=== PATIENT | female | born 1995 | race American Indian/Alaskan Native ===

== ENCOUNTER 2018-01-20 00:27 | Inpatient (IN) | payer OTHER ==
[2018-01-20] MEDS ORDERED: S2 RACEPINEPHRINE 2.25% IH ONE (00:29)
[2018-01-20] MEDS ORDERED: ADRENALIN IV ONE ×2 (00:30)
[2018-01-20] MEDS ORDERED: NACL 0.9% 1000 ML 1,000 ML IV ONE (00:30)
[2018-01-20] MEDS ORDERED: PROVENTIL IH ONE (00:55)
[2018-01-20] MEDS ORDERED: ZOFRAN IV ONE (00:55)
[2018-01-20 01:20] LABS: Basophils % (Auto) 0.2 % (0.0-1.8); Eosinophils # (Auto) 0.1 K/mm3 (0.0-0.4); Eosinophils % (Auto) 1.1 % (0.0-4.3); Hematocrit 39.8 % (30.3-42.9); Hemoglobin 13.5 gm/dl (10.1-14.3); Lymphocytes # (Auto) 2.1 K/mm3 (1.2-5.4); Lymphocytes % (Auto) 17.7 % (13.4-35.0); Mean Corpuscular HGB Conc 34 % (30-34); Mean Corpuscular Hemoglobin 31 pg (28-32); Mean Corpuscular Volume 90 fl (79-97); Monocytes # (Auto) 0.2 K/mm3 (0.0-0.8); Monocytes % (Auto) 1.8 % (0.0-7.3); Red Blood Count 4.44 M/mm3 (3.65-5.03); Red Cell Distribution Width 12.7 % (13.2-15.2)
--- NOTE | 2018-01-20 01:20 | Emergency Department Report ---
HPI - General Chief Complaint: Dyspnea/Respdistress Time Seen by Provider: 01/20/18 00:45 - HPI HPI: The patient is a 22-year-old female presents for evaluation of dyspnea via EMS after expressed allergic reaction. The patient states that she was riding in the car with a friend approximately 30 mins prior to arrival, when she developed sudden onset of severe tightness of the throat and dyspnea. Per EMS Shortly after their arrival and initial evaluation, the patient developed progressive altered mental status and increase work of breathing. The patient reported accidentally consuming cheese prior to onset of her symptoms. The patient continues to complain of constant tightness of the throat and tightness of the chest. The patient denies trauma to the neck or chest, lip swelling, tongue swelling, neck stiffness, dysphagia, stridor, drooling, difficulty tolerating secretions, dysphonia, hoarseness of voice, abdominal pain. ED Review of Systems ROS: Stated complaint: JENNI/ALLERGIC REACTION Other details as noted in HPI Constitutional: denies: fever ENT: Reports throat tightness Respiratory: denies: cough reports shortness of breath Cardiovascular: denies: chest pain Endocrine: denies unexplained weight loss or gain Gastrointestinal: denies: abdominal pain, nausea Genitourinary: denies: dysuria Musculoskeletal: denies: leg swelling Skin: denies: rash Neurological: denies: headache Hematological/Lymphatic: denies: easy bleeding or easy bruising Psych: denies sadness or hopelessness Physical Exam - Physical Exam Physical Exam: General: well-nourished, well-developed, Head: Normocephalic, atraumatic Eyes: normal sclera ENT: Mucous membranes are pale and dry Neck: trachea midline, neck supple, No neck stiffness, no cervical adenopathy Respiratory: diminished breath sounds and wheezing present throughout lung field bilaterally Cardio: S1 and S2 present, no murmurs, rubs, gallops, capillary refill is delayed Abdomen: Normoactive bowel sounds, soft abdomen, no rigidity, no guarding or rebound tenderness Chest WALL/Back: No tenderness to palpation of the chest wall, no CVA tenderness with percussion Musc: No pitting edema Skin: No rash Neuro: drowsy, slurred speech, oriented to person place and situation Psych: Normal affect ED Medical Decision Making - Lab Data Result diagrams: 01/20/18 01:03 01/20/18 01:03 - Medical Decision Making The patient was seen and examined by myself. The patient is placed on a library monitor and continuous pulse ox. On initial evaluation, the patient was found to be altered, drowsy, difficult to arouse, tachypneic, in respiratory distress, with wheezing throughout lung díaz and low oxygen saturation. The patient is given IM epinephrine and a breathing treatment. The patient received steroids in route via EMS. Multiple bedside assessments were performed to assess patient responsiveness to resuscitative measures. Lab results revealed elevated WBC 11 and mild acidosis, pH 7.32. On reevaluation the patient's found to have normalization of oxygen saturation, and resolution of her altered mental status and drowsiness. The patient is now alert and oriented 3. The patient remains with mild wheezing on exam and continues to complain of dyspnea and throat tightness. Assess the patient will be admitted for continued treatment and close monitoring. The on-call hospitalist service was contacted. They agreed to admit the patient for further treatment and close monitoring. The ED admit order was placed. The patient was admitted in guarded condition. Critical care attestation.: If time is entered above; I have spent that time in minutes in the direct care of this critically ill patient, excluding procedure time. ED Disposition Clinical Impression: Acute respiratory failure with hypoxia Altered mental status Qualifiers: Altered mental status type: delirium Qualified Code(s): R41.0 - Disorientation , unspecified Anaphylaxis Qualifiers: Encounter type: initial encounter Qualified Code(s): T78.2XXA - Anaphylactic shock, unspecified, initial encounter Disposition: OP ADMIT IP TO THIS HOSP Is pt being admited?: Yes Does the pt Need Aspirin: Yes Condition: Critical Referrals: PRIMARY CARE, [Primary Care Provider] - 3-5 Days Time of Disposition: 19
[2018-01-20] MEDS ORDERED: MAGNESIUM SULFATE 2GM/50ML 2 GM/50 ML BAG IV ONE ×2 (01:29→06:23)
[2018-01-20 01:48] LABS: Alanine Aminotransferase 10 units/L (7-56); Albumin 3.6 g/dL (3.9-5); BUN/Creatinine Ratio 18; Blood Urea Nitrogen 9 mg/dL (7-17); Calcium 8.3 mg/dL (8.4-10.2); Hemolysis Index 26
[2018-01-20 02:02] LABS: Mean Platelet Volume 8.4 fl (6-12); Platelet Count 175 K/mm3 (140-440)
--- NOTE | 2018-01-20 02:38 | XRay Report ---
FINAL REPORT EXAM: XR CHEST 1V AP HISTORY: dyspnea COMPARISON: None available. FINDINGS: Frontal view(s) of the chest obtained. Cardiac silhouette within normal limits. No gross consolidation or effusion. No pneumothorax. IMPRESSION: No grossly acute findings.
[2018-01-20] MEDS ORDERED: TYLENOL PO PRN (05:15)
[2018-01-20] MEDS ORDERED: ZOFRAN IV PRN (05:15)
[2018-01-20] MEDS ORDERED: SODIUM CHLORIDE FLUSH SYRINGE 10 ML IV PRN (05:15)
[2018-01-20] MEDS ORDERED: K-DUR PO ONE (05:56)
--- NOTE | 2018-01-20 05:58 | History and Physical Report ---
History of Present Illness Date of examination: 01/20/18 Date of admission: 01/20/18 05:14 History of present illness: This is a 22-year-old woman history of asthma, eczema went to order food at [employer], she requested no cheese on her food. The patient did not check her food, she started eating 8 shortly after developed diffuse itching, felt as if her throat was tight and started to close. She called EMS, they brought the patient to the ER, she was in respiratory distress, bradycardia emergency room physician Choi status started to decrease. She was given cocktail for allergic reaction. Patient is now much better, able to handle her on her saliva , no swelling of tongue, lips Review of systems Constitutional: no weight loss, chills Ears, eyes, nose, mouth and throat: no nasal congestion, no nasal discharge, no sinus pressure, no vision change, no red eye. Neck: No neck pain or rigidity. Cardiovascular: no chest pain, palpitations Respiratory: No cough, shortness of breath Gastrointestinal: no abdominal pain, hematochezia Genitourinary : no dysuria, frequency , no hematuria Musculoskeletal: no joint swelling or muscle ache Integumentary: no rash, no pruritis Neurological: no parathesias, no numbness, no focal weakness Endocrine: no cold or heat intolerance, no polyuria or polydipsia Hematologic/Lymphatic: no easy bruising, no easy bleeding, no gland swelling Allergic/Immunologic: no urticaria, no angioedema. PAST MEDICAL HISTORY:asthma, eczema PAST SURGICAL HISTORY: None SOCIAL HISTORY: Denies alcohol, tobacco, drugs FAMILY HISTORY: Hypertension Medications and Allergies Allergies Allergy/AdvReac Type Severity Reaction Status Date / Time cheese AdvReac Swelling Verified 01/20/18 01:12 lactase [From Dairy Aid] AdvReac Swelling Verified 01/20/18 01:14 peanut AdvReac Swelling Verified 01/20/18 01:15 Active Meds: Active Medications Acetaminophen (Tylenol) 650 mg PO Q4H PRN PRN Reason: Pain MILD(1-3)/Fever >100.5/RODRIGUEZ Diphenhydramine HCl (Benadryl) 25 mg IV Q6H [place] Enoxaparin Sodium (Lovenox) 40 mg SUB-Q QDAY@1000 [place] Famotidine (Pepcid) 20 mg IV BID [place] Methylprednisolone Sodium Succinate (Solu-Medrol) 125 mg IV Q6H [place] Ondansetron HCl (Zofran) 4 mg IV Q8H PRN PRN Reason: Nausea And Vomiting Sodium Chloride (Sodium Chloride Flush Syringe 10 Ml) 10 ml IV BID [place] Sodium Chloride (Sodium Chloride Flush Syringe 10 Ml) 10 ml IV PRN PRN PRN Reason: LINE FLUSH Exam - Physical Exam Narrative exam: Gen. appearance: Patient lying in bed, no apparent distress HEENT: Normocephalic, atraumatic, pupils equally round and reactive to light, extraocular movement intact, and no sclericterus,. No JVD or thyromegaly or nodule,neck supple, no carotid bruit ,mucous membranes moist, no exudate or erythema Heart: S1, S2, regular rate and rhythm Lungs: Clear to auscultation bilaterally, breathing comfortable Abdomen: Positive bowel sounds, nontender, nondistended, no organomegaly Extremity: No edema, cyanosis, clubbing Skin: No rash, nodules, warm, dry Neuro: Oriented 3, cranial nerves II-12 intact, speech is fluent, motor and sensory intact - Constitutional Vitals: Temp Pulse Resp BP Pulse Ox 98.3 F 82 14 110/62 100 01/20/18 03:00 01/20/18 05:00 01/20/18 05:00 01/20/18 05:00 01/20/18 05:00 Results - Labs CBC & Chem 7: 01/20/18 01:03 01/20/18 01:03 Labs: Abnormal lab results 01/20/18 01/20/18 01/20/18 Range/Units 00:50 01:03 01:03 WBC 11.7 H (4.5-11.0) K/mm3 RDW 12.7 L (13.2-15.2) % Seg Neutrophils % 79.2 H (40.0-70.0) % Seg Neutrophils # 9.3 H (1.8-7.7) K/mm3 POC ABG pH 7.329 L (7.35-7.45) POC ABG pO2 140 H (80-105) Potassium 3.4 L (3.6-5.0) mmol/L Carbon Dioxide 18 L (22-30) mmol/L Creatinine 0.5 L (0.7-1.2) mg/dL Glucose 172 H (65-100) mg/dL Calcium 8.3 L (8.4-10.2) mg/dL Albumin 3.6 L (3.9-5) g/dL - Imaging and Cardiology Chest x-ray: image reviewed Assessment and Plan Assessment Acute allergic reaction to cheese Hypokalemia Asthma Eczema Plan Admit to medicine Start high-dose steroids, Pepcid, Benadryl Replete potassium continue appropriate outpatient medications DVT prophylaxis
[2018-01-20] MEDS: BENADRYL IV SCH ×2 (06:09→12:03)
[2018-01-20] MEDS ORDERED: ADRENALIN ONE (06:21)
[2018-01-20] MEDS ORDERED: NACL 0.9% 1000 ML 1,000 ML ONE (06:21)
[2018-01-20] MEDS ORDERED: LOVENOX SUB-Q SCH ×2 (10:00)
[2018-01-20] MEDS ORDERED: SODIUM CHLORIDE FLUSH SYRINGE 10 ML IV SCH (10:00)
[2018-01-20] MEDS ORDERED: PEPCID IV SCH (10:00)
--- NOTE | 2018-01-20 14:11 | Discharge Summary ---
Providers - Providers Date of Admission: 01/20/18 05:14 Date of discharge: 01/20/18 Attending physician: MAULIK STEARNS 01/20/18 12:24 Consult to Dietitian/Nutrition [CONS] Routine Physician Instructions: Reason For Exam: Reason for Consult: multiple food allergies Primary care physician: [employer]ATING [employer]ER Hospitalization Condition: Critical Hospital course: This is a 22-year-old woman history of asthma, eczema, allergic to dairy product went to order food at [facility], she requested no cheese on her food. When food was delivered the patient did not check her food diet in fact it was containing cheese, she started eating and shortly after developed diffuse itching, felt as if her throat was tight and started to close. She called EMS, they brought the patient to the ER, she was in respiratory distress , bradycardic. She was given cocktail for allergic reaction. Her symptoms then significantly improved, able to handle her own saliva, no swelling of tongue, or drooling of saliva noted. She was admitted to the hospital for further monitoring. She was continued on IV Benadryl and IV Solu-Medrol. No further respiratory distress noted, she was saturating greater than 94% on room air. She was tolerating diet without any difficulty. She was then discharged home with outpatient follow-up. Discharge diagnosis: Acute respiratory distress, due to acute allergy reaction, resolved Acute allergic reaction to cheese, resolved Hypokalemia, repleted Acute Asthma exacerbation, now resolved Eczema, no acute issue Physical exam: GENERAL: well-developed and well-nourished Female lying on bed appeared to be in no discomfort. HEENT: Normocephalic. Atraumatic. No conjunctival congestion or icterus. Patient has moist mucous membranes. NECK: Supple. Trachea midline. CHEST/LUNGS: Clear to auscultated bilaterally, breathing nonlabored. No wheezes crackles or rhonchi. HEART/CARDIOVASCULAR: Regular in rate and rhythm. S1 and S2 positive. ABDOMEN: Abdomen is soft, nontender. Patient has normal bowel sounds. SKIN: There is no rash. Warm and dry. NEURO: No focal motor deficit. Follows command. MUSCULOSKELETAL: No joint effusion or tenderness. EXTRIMITY: No edema, no cyanosis or clubbing. PSYCH: Cooperative. Disposition: - TO HOME OR SELFCARE Time spent for discharge: 32 minutes Core Measure Documentation - Palliative Care Palliative Care/ Comfort Measures: Not Applicable - Core Measures Any of the following diagnoses?: none Exam - Constitutional Vitals: Temp Pulse Resp BP Pulse Ox 98.7 F 93 H 16 112/69 98 01/20/18 07:40 01/20/18 07:40 01/20/18 07:40 01/20/18 07:39 01/20/18 07:40 Plan Activity: advance as tolerated Weight Bearing Status: Weight Bear as Tolerated Diet: other (avoid dairy product) Follow up with: PRIMARY CARE, [Primary Care Provider] - 3-5 Days Prescriptions: ALBUTEROL Inhaler [Proair] 2 puff IH QID PRN 30 Days inhalation PRN Reason: Shortness Of Breath diphenhydrAMINE [Benadryl CAP] 25 mg PO Q6HR PRN #14 capsule PRN Reason: Allergic Reaction EPINEPHrine (NF) [Epipen (Nf)] 0.3 mg IM ONCE #2 syringekit predniSONE [Deltasone] 50 mg PO QDAY #4 tab
[2018-01-20 16:16] VITALS: BP 116/60
== END 2018-01-20 17:30 | disposition home or self-care (01) | DRG 915 ==
LOC: ED 00:27 → 3A 05:14
PROVIDERS: ADMIT Internal Medicine; ATTEND Internal Medicine
PROC: 4A033R1 Measurement of Arterial Saturation, Peripheral, Percutaneous Approach (ICD-10-PCS; principal; 2018-01-20)
DX: T78.09XA Anaphylactic reaction due to other food products, initial encounter (principal); J96.01 Acute respiratory failure with hypoxia; J45.901 Unspecified asthma with (acute) exacerbation; E87.6 Hypokalemia; X58.XXXA Exposure to other specified factors, initial encounter; L30.9 Dermatitis, unspecified; T78.49XA Other allergy, initial encounter; Z82.49 Family history of ischemic heart disease and other diseases of the circulatory system; Z91.011 Allergy to milk products; Z91.010 Allergy to peanuts
CPT/HCPCS: 36415; 71045; 80053; 82803; 83880; 84703; 85025; 93005; 93010; 96361; 96365; 96375; J0171; J1200; J1650; J2405; J2930; J3475; J7030

== ENCOUNTER 2021-10-11 18:51 | Emergency (ER) | payer BC, OTHER ==
[2021-10-11] MEDS ORDERED: dexAMETHasone 4 MG/ML VIAL IV ONE (19:26)
[2021-10-11] MEDS ORDERED: SODIUM CHLORIDE 0.9% 1000 ML 1,000 ML IV ONE (19:26)
[2021-10-11] MEDS ORDERED: diphenhydrAMINE 50 MG/ML VIAL IV STA (19:26)
[2021-10-11] MEDS ORDERED: FAMOTIDINE 20 MG/2 ML INJ IV ONE (19:27)
--- NOTE | 2021-10-11 20:36 | Emergency Department Report ---
ED Allergic Reaction HPI - General Chief complaint: Allergic Reaction Stated complaint: ALLERGIC REATIONS Time Seen by Provider: 10/11/21 19:25 Source: patient Mode of arrival: Ambulatory Limitations: No Limitations - History of Present Illness Initial Comments: 25-year-old F [place]i female this emerge department complaining of possible allergic reaction after eating some food triggering her reaction she began getting some tingling to her lips redness and rash so she took her EpiPen. And came to the emergency department for further treatment evaluation. She reports no chest pain palpitation reports no nausea, no vomiting, fever, chills, sweats. No odynophagia or or dysphagia. MD Complaint: allergic reaction, facial swelling -: Gradual Symptoms: itching, facial swelling, lip swelling Severity: mild Treatment Prior to Arrival: epinephrine Previous Allergy History: none - Related Data Previous Rx's Medication Instructions Recorded Last Taken Type Albuterol Mdi (or & Nicu Only) 2 puff IH QID PRN 30 Days 01/20/18 Unknown Rx [Proair] inhalation diphenhydrAMINE [Benadryl CAP] 25 mg PO Q6HR PRN #14 capsule 01/20/18 Unknown Rx predniSONE [Deltasone] 50 mg PO QDAY #4 tab 01/20/18 Unknown Rx EPINEPHrine (NF) [Epipen (Nf)] 0.3 mg IM ONCE #2 syringekit 10/11/21 Unknown Rx Famotidine [Pepcid] 20 mg PO BID #14 tablet 10/11/21 Unknown Rx hydrOXYzine HCL [Atarax] 25 mg PO Q6HR PRN #20 tablet 10/11/21 Unknown Rx predniSONE [Deltasone] 20 mg PO BID #10 tab 10/11/21 Unknown Rx Allergies Allergy/AdvReac Type Severity Reaction Status Date / Time tree nut Allergy Hives Verified 10/11/21 18:52 cheese AdvReac Swelling Verified 10/11/21 18:52 lactase [From Dairy Aid] AdvReac Swelling Verified 10/11/21 18:52 peanut AdvReac Swelling Verified 10/11/21 18:52 chocolate Allergy Hives Uncoded 01/20/18 12:40 corn Allergy Hives Uncoded 01/20/18 12:40 dairy Allergy Hives Uncoded 01/20/18 12:40 seafood Allergy Hives Uncoded 01/20/18 12:40 shellfish Allergy Hives Uncoded 01/20/18 12:40 ED Review of Systems ROS: Stated complaint: ALLERGIC REATIONS Other details as noted in HPI Comment: All other systems reviewed and negative ED Past Medical Hx - Past Medical History Hx Asthma: Yes Additional medical history: Eczema - Social History Smoking Status: Never Smoker - Medications Home Medications: Home Medications Medication Instructions Recorded Confirmed Last Taken Type Albuterol Mdi (or & Nicu Only) 2 puff IH QID PRN 30 Days 01/20/18 Unknown Rx [Proair] inhalation diphenhydrAMINE [Benadryl CAP] 25 mg PO Q6HR PRN #14 capsule 01/20/18 Unknown Rx predniSONE [Deltasone] 50 mg PO QDAY #4 tab 01/20/18 Unknown Rx EPINEPHrine (NF) [Epipen (Nf)] 0.3 mg IM ONCE #2 syringekit 10/11/21 Unknown Rx Famotidine [Pepcid] 20 mg PO BID #14 tablet 10/11/21 Unknown Rx hydrOXYzine HCL [Atarax] 25 mg PO Q6HR PRN #20 tablet 10/11/21 Unknown Rx predniSONE [Deltasone] 20 mg PO BID #10 tab 10/11/21 Unknown Rx ED Physical Exam - General Limitations: No Limitations General appearance: alert, in no apparent distress - Head Head exam: Present: atraumatic, normocephalic - Eye Eye exam: Present: normal appearance - ENT ENT exam: Present: mucous membranes moist, other (Some swelling to her lips and rash no located to her face. Airway patent tongue uvula midline no stridor no drooling) - Neck Neck exam: Present: normal inspection - Respiratory Respiratory exam: Present: normal lung sounds bilaterally. Absent: respiratory distress - Cardiovascular Cardiovascular Exam: Present: regular rate, normal rhythm. Absent: systolic murmur, diastolic murmur, rubs, gallop - GI/Abdominal GI/Abdominal exam: Present: soft, normal bowel sounds - Extremities Exam Extremities exam: Present: normal inspection - Back Exam Back exam: Present: normal inspection - Neurological Exam Neurological exam: Present: alert, oriented X3 - Psychiatric Psychiatric exam: Present: normal affect, normal mood - Skin Skin exam: Present: warm, dry, intact, normal color, urticaria (Occasional chest arms). Absent: rash ED Medical Decision Making - Medical Decision Making Patient 25-year-old female with a known allergy history who carries an epinephrine pen who ingested a meal and began having allergic reaction. Symptoms appear to be consistent with the development of evolving anaphylaxis however may have been diverted by utilization of the EpiPen although she did still have a some lip swelling and rash to her face. There is a lack of pulmonary, cardiovascular, GI, lack of hypotension. No evidence of any serum sickness is no recent drug exposure, will lack of fever and arthralgias or an ingestion of unknown preformed toxin. No evidence of any airway compromise or shock at this present time. Did treat her for allergic reaction with steroids, IV fluids, H2, H1 blockers. No evidence of any further epinephrine as she did take it prior to arrival. Critical care attestation.: If time is entered above; I have spent that time in minutes in the direct care of this critically ill patient, excluding procedure time. ED Disposition Clinical Impression: Allergic reaction Disposition: 01 HOME / SELF CARE / HOMELESS Is pt being admited?: No Does the pt Need Aspirin: No Condition: Stable Instructions: Anaphylactic Reaction, Adult, Allergies, Adult Prescriptions: hydrOXYzine HCL [Atarax] 25 mg PO Q6HR PRN #20 tablet PRN Reason: Itching predniSONE [Deltasone] 20 mg PO BID #10 tab EPINEPHrine (NF) [Epipen (Nf)] 0.3 mg IM ONCE #2 syringekit Famotidine [Pepcid] 20 mg PO BID #14 tablet Referrals: [facility] [Provider Group] - 3-5 Days
[2021-10-11 23:20] VITALS: BP 127/76
== END 2021-10-11 23:21 | disposition home or self-care (01) ==
LOC: ED 18:51
DX: T78.1XXA Other adverse food reactions, not elsewhere classified, initial encounter (principal); J45.909 Unspecified asthma, uncomplicated; Z79.899 Other long term (current) drug therapy; Z91.02 Food additives allergy status; Z91.011 Allergy to milk products; Z91.018 Allergy to other foods; Z91.010 Allergy to peanuts; Z91.013 Allergy to seafood
CPT/HCPCS: 96361; 96374; 96375; 99282; J1100; J1200; J3490; J7030; Q0162